=== PATIENT | female | born 1980 | race Two or more races ===

== ENCOUNTER 2025-08-19 16:52 | Inpatient (IN) | payer MEDICAID, OTHER ==
[~2025-08-19] VITALS: Ht 160 cm; Wt 91.2 kg
[2025-08-19] MEDS ORDERED: LORAZEPAM INJ 2 MG/ML VIAL ONE (17:19)
[2025-08-19] MEDS: LORAZEPAM INJ 2 MG/ML VIAL IV ONE (17:20)
[2025-08-19] MEDS: LEVETIRACETAM (500MG) 1,000 MG in IV NS 0.9% 90 ML IV SCH (17:45)
[2025-08-19 17:48] LABS: PLATELET COUNT (AUTO) 299 K/uL (150-450); RED BLOOD CELL COUNT(AUTO) 4.51 MIL/uL (4.0-5.2); RED CELL DISTRIBUTION WIDTH 15.6 % (11.5-15.0); WHITE BLOOD COUNT (AUTO) 5.7 K/uL (4.3-11.0)
[2025-08-19] MEDS ORDERED: LEVETIRACETAM (500MG) 1,000 MG in IV NS 0.9% 90 ML IV ONE (17:58)
[2025-08-19 18:00] LABS: ALCOHOL, BLOOD < 3 mg/dL (0-10); CALCIUM, SERUM 8.3 mg/dL (8.5-10.1); CREATININE 0.6 mg/dL (0.6-1.3); SODIUM SERUM 132 mmol/L (136-145); UREA NITROGEN, BLOOD 6 mg/dL (7-18)
[2025-08-19] MEDS ORDERED: ALBU90AE2 IH (18:54)
[2025-08-19] MEDS ORDERED: MELO-107 PO (18:54)
[2025-08-19] MEDS ORDERED: LORA2TAB95 PO (18:54)
[2025-08-19] MEDS ORDERED: LEVE750T10 PO (18:54)
[2025-08-19] MEDS ORDERED: FOLI0.4T6 PO (18:54)
[2025-08-19] MEDS ORDERED: LEVO175T7 PO (18:54)
[2025-08-19] MEDS ORDERED: GABA300C PO (18:54)
[2025-08-19] MEDS ORDERED: LOSA50TA3 PO (18:54)
[2025-08-19] MEDS ORDERED: OXCA600T8 PO (18:54)
[2025-08-19] MEDS ORDERED: TAMS-12 PO (18:54)
[2025-08-19] MEDS ORDERED: MULT-1275 PO (18:54)
[2025-08-19] MEDS ORDERED: ATOR20TA PO (18:54)
[2025-08-19 21:57] VITALS: BP 118/91; TEMP 97.9; O2SAT 99
[2025-08-19] MEDS ORDERED: MAG HYDROX/AL HYDROX/SIMETH 30 ML UDC PO PRN (22:00)
[2025-08-19] MEDS ORDERED: LORAZEPAM INJ 2 MG/ML VIAL IV PRN (22:00)
[2025-08-19] MEDS ORDERED: ONDANSETRON HCL/PF 4 MG/2 ML VIAL IVP PRN (22:00)
[2025-08-19] MEDS ORDERED: LEVETIRACETAM (500MG) 2,000 MG in IV NS 0.9% 80 ML IV SCH (22:00)
[2025-08-19] MEDS ORDERED: MELOXICAM 7.5 MG TABLET PO PRN (22:00)
[2025-08-19] MEDS ORDERED: MAGNESIUM HYDROXIDE 30 ML UDC PO PRN (22:00)
[2025-08-19] MEDS: ATORVASTATIN 10 MG TABLET PO SCH (22:34)
[2025-08-19] MEDS: OXCARBAZEPINE 150 MG TABLET PO SCH (22:34)
[2025-08-19] MEDS: TAMSULOSIN 0.4 MG CAP.SR.24H PO SCH (22:34)
[2025-08-19] MEDS: GABAPENTIN 300 MG CAPSULE PO SCH (22:34)
[2025-08-19] MEDS: ENOXAPARIN SODIUM 40 MG/0.4 ML DISP.SYRIN SQ SCH (22:35)
[2025-08-19] MEDS ORDERED: LEVETIRACETAM (500MG) 500 MG/5 ML VIAL IV ONE (23:13)
[2025-08-20] VITALS: BP 121/81; TEMP 97.3; O2SAT 98
[2025-08-20 04:00] VITALS: BP 126/87; TEMP 98.2; O2SAT 98
[2025-08-20] MEDS: ACETAMINOPHEN 325 MG TABLET PO PRN (04:08)
[2025-08-20 06:45] LABS: PLATELET COUNT (AUTO) 281 K/uL (150-450); RED BLOOD CELL COUNT(AUTO) 4.63 MIL/uL (4.0-5.2); RED CELL DISTRIBUTION WIDTH 15.8 % (11.5-15.0); WHITE BLOOD COUNT (AUTO) 7.9 K/uL (4.3-11.0)
[2025-08-20 06:56] LABS: CALCIUM, SERUM 8.2 mg/dL (8.5-10.1); CREATININE 0.6 mg/dL (0.6-1.3); PHOSPHORUS 3.3 mg/dL (2.5-4.9); UREA NITROGEN, BLOOD 5.0 mg/dL (7-18)
[2025-08-20 07:09] LABS: SODIUM SERUM 134.0 mmol/L (136-145)
[2025-08-20] MEDS ORDERED: LEVOTHYROXINE SODIUM 175 MCG TABLET PO SCH (07:30)
[2025-08-20 08:00] VITALS: BP 118/80; TEMP 97.7; O2SAT 98
[2025-08-20] MEDS: LEVETIRACETAM (500MG) 2,000 MG in IV NS 0.9% 80 ML IV SCH (09:34)
[2025-08-20 09:35] VITALS: BP 118/80
[2025-08-20] MEDS: LOSARTAN POTASSIUM 50 MG TABLET PO SCH (09:35)
[2025-08-20] MEDS: MULTIVIT W/MINERALS 1 TAB TABLET PO SCH (09:35)
[2025-08-20] MEDS: FOLIC ACID 1 MG TABLET PO SCH (09:35)
[2025-08-20] MEDS ORDERED: MAGNESIUM OXIDE 400 MG TABLET PO ONE (11:30)
== END 2025-08-20 10:46 | disposition left against medical advice (07) | DRG 53 ==
LOC: ER 16:59 → TELE1 18:32
PROVIDERS: ADMIT Nurse Practitioner Acute Care; ATTEND Nurse Practitioner Acute Care
DX: G40.909 Epilepsy, unspecified, not intractable, without status epilepticus (principal); E87.1 Hypo-osmolality and hyponatremia; J45.909 Unspecified asthma, uncomplicated; E66.01 Morbid (severe) obesity due to excess calories; I10 Essential (primary) hypertension; E78.5 Hyperlipidemia, unspecified; Z68.35 Body mass index [BMI] 35.0-35.9, adult; Z53.29 Procedure and treatment not carried out because of patient's decision for other reasons; Z87.440 Personal history of urinary (tract) infections; Z87.442 Personal history of urinary calculi; Z20.822 Contact with and (suspected) exposure to COVID-19
CPT/HCPCS: 36415; 70450-TC; 80048-TC; 83735-TC; 84100-TC; 85025-TC; A4223; G0378; G0480; J1650; J1953; J2060; J7030; J7050